=== PATIENT | male | born 1950 | race Caucasian/White ===

== ENCOUNTER → 2017-04-01 | Outpatient (CLI) | payer BC ==
[~2017-04-01] MED LIST: ACETTAB19 PO; LISI-461 PO
[2017-04-01 17:46] LABS: MEAN CORPUSCULAR HGB CONC 35.2 g/dl (32-36)
[2017-04-01 17:51] LABS: ALT/SGPT 43 U/L (12-78); BLOOD UREA NITROGEN 15 mg/dl (7-18); CARBON DIOXIDE 26 mmol/L (21-32); CHLORIDE 107 mmol/L (98-107); CHOLESTEROL 185 mg/dl (0-200); CREATININE 1.01 mg/dl (0.60-1.40); GLUCOSE 102 mg/dl (70-99); POTASSIUM 4.4 mmol/L (3.5-5.1); SODIUM 139 mmol/L (136-145); TRIGLYCERIDES 77 mg/dl (0-150); VERY LOW DENSITY LIPOPROT CALC 15 mg/dl
[2017-04-01 17:56] LABS: ALB/GLOB RATIO 1.1 (0.9-2); ALKALINE PHOSPHATASE 63 U/L (45-117); AST/SGOT 40 U/L (15-37); CHOLESTEROL/HDL RATIO 2.3; HDL CHOLESTEROL 80 mg/dl; LDL CHOLESTEROL CALCULATED 90 mg/dl
[2017-04-01 18:16] LABS: URINE APPEARANCE CLEAR (CLEAR); URINE BILIRUBIN NEG (NEG); URINE COLOR YELLOW; URINE NITRITE NEG (NEG); URINE PH 5.5 (4.5-7.5); URINE SPECIFIC GRAVITY 1.022 (1.000-1.030); UROBILINOGEN NEG (NEG)
[2017-04-01 18:29] LABS: MANUAL MICROSCOPIC REQUIRED? NO; REVIEW REQ? NO
[2017-04-01 18:48] LABS: HEMATOCRIT 40.6 % (42-52); MEAN CELL VOLUME 92.5 fL (80-100); MEAN CORPUSCULAR HEMOGLOBIN 32.6 pg (25-34); RED BLOOD COUNT 4.39 M/uL (4.7-6.1); WHITE BLOOD COUNT 4.36 K/uL (4.8-10.8)
[2017-04-01 19:27] LABS: PLATELET COUNT 150 K/uL (130-400); PLT ESTIMATE DECREASED
== END | disposition home or self-care (01) ==
LOC: C.LABBFT 12:31
PROVIDERS: ATTEND Physician Assistant Medical
DX: R39.9 Unspecified symptoms and signs involving the genitourinary system (principal); R97.20 Elevated prostate specific antigen [PSA]; R10.9 Unspecified abdominal pain